=== PATIENT | male | born 1940 | race Caucasian/White ===

== ENCOUNTER 2018-08-13 05:43 | Emergency (ER) | payer MEDICARE ==
[2018-08-13 06:24] LABS: #Eosinphils 0.1 thou/uL (0.0-0.7); #Lymphocytes 1.3 thou/uL (1.20-3.40); #Monocytes 0.5 thou/uL (0.11-0.59); #Neutrophils 4.7 thou/uL (1.40-6.50); %Basophils 0.3 % (0.0-1.0); %Eosinophils 1.6 % (0.0-10.0); %Lymphocytes 20.1 % (21.0-51.0); %Monocytes 7.7 % (0.0-10.0); %Neutrophils 70.3 % (42.0-75.0); Hemoglobin 13.7 g/dL (14.0-18.0); Mean Corpuscular HGB CONC 33.2 g/dL (32.0-36.0); Mean Corpuscular Hemoglobin 31.5 pg (27.0-31.0); Mean Corpuscular Volume 94.7 fL (78.0-98.0); Mean Platelet Volume 7.1 fL (7.4-10.4); Platelet Count 213 thou/uL (130-400); RBC Distribution Width 11.3 % (11.5-14.5); Red Blood Cell (RBC) Count 4.34 mill/uL (4.70-6.10); White Blood Cell (WBC) Count 6.7 thou/uL (4.8-10.8)
[2018-08-13 06:52] LABS: Alcohol Less than 10 mg/dL (Less than 10); Salicylate Less than 8.0 mg/dL (15.0-30.0)
[2018-08-13 06:53] LABS: ALT (SGPT) 18 U/L (8-55); AST (SGOT) 20 U/L (5-34); Albumin 4.3 g/dL (3.4-4.8); Alkaline Phosphatase 59 U/L (40-150); Anion Gap 13 mmol/L (10-20); BUN (Urea Nitrogen) 12 mg/dL (8.4-25.7); Bilirubin, Total 0.4 mg/dL (0.2-1.2); Calc. Creatinine Clearance 0 mL/min (70-130); Calcium 9.5 mg/dL (7.8-10.44); Carbon Dioxide 26 mmol/L (23-31); Chloride 100 mmol/L (98-107); Estimated GFR-MDRD Greater than 90; Globulin 2.8 g/dL (2.4-3.5); Glucose 124 mg/dL (83-110); Potassium 4.1 mmol/L (3.5-5.1); Protein, Total 7.1 g/dL (5.8-8.1); Sodium 135 mmol/L (136-145)
--- NOTE | 2018-08-13 07:22 | CT ---
CT HEAD WITHOUT CONTRAST: INDICATIONS: Altered mental status. FINDINGS: No acute intracranial hemorrhage, mass effect, midline shift, or ventriculomegaly. Incidental note o f cavum septum pellucidum. There is scattered paranasal sinus mucosal thickening. Mild white matter hypoattenuation indicates microvascular ischemic disease. There is incidental note of a probable be nign lucency at the left calvarial vertex. IMPRESSION: 1. No acute intracranial hemorrhage or mass effect. 2. Mild chronic microvascular ischemic disease. POS: DREW
[2018-08-13 08:24] LABS: Bilirubin Negative (Negative); Blood, Urine Negative (Negative); Glucose, Urine (Dipstick) Negative (Negative); Leukocyte Negative (Negative); Nitrite Negative (Negative); Protein, Urine (Dipstick) Negative (Neg-Trace); Urobilinogen 0.2 mg/dL (0.2-1.0)
[2018-08-13 08:25] LABS: Amphetamine Not Detected (NotDetected); Barbiturates Screen Not Detected (NotDetected); Benzodiazepine Screen Not Detected (NotDetected); Cocaine Metabolite Screen Not Detected (NotDetected); Medtox Control Line Valid? VALID (VALID); Medtox Reader # READER 1; Methadone Not Detected (NotDetected); Methamphetamine Not Detected (NotDetected); Opiate Screen Not Detected (NotDetected); Oxycodone Screen Not Detected (NotDetected); Phencyclidine (PCP) Not Detected (NotDetected); THC/Cannabinoid Screen Not Detected (NotDetected); Tricyclic Screen Not Detected (NotDetected)
[2018-08-13 08:26] LABS: Clarity Clear (Clear)
== END 2018-08-13 19:33 ==
LOC: ERS 05:43
DX: I10 Essential (primary) hypertension (principal)
CPT/HCPCS: 36415; 70450; 80053; 80306; 80307; 81003; 84484; 85025; 93005

== ENCOUNTER 2018-11-05 06:54 | Emergency (ER) | payer MEDICARE ==
[2018-11-05] MEDS ORDERED: Proparacaine 0.5% Opth 15 ML BOT ONE (07:00)
[2018-11-05 07:20] LABS: #Eosinphils 0.3 thou/uL (0.0-0.7); #Lymphocytes 1.9 thou/uL (1.20-3.40); #Monocytes 0.6 thou/uL (0.11-0.59); %Basophils 0.1 % (0.0-1.0); %Eosinophils 4.5 % (0.0-10.0); %Lymphocytes 27.9 % (21.0-51.0); %Monocytes 8.6 % (0.0-10.0); %Neutrophils 58.8 % (42.0-75.0); Hemoglobin 14.4 g/dL (14.0-18.0); Mean Corpuscular HGB CONC 33.7 g/dL (32.0-36.0); Mean Corpuscular Hemoglobin 31.8 pg (27.0-31.0); Mean Corpuscular Volume 94.6 fL (78.0-98.0); Mean Platelet Volume 7.7 fL (7.4-10.4); Platelet Count 178 thou/uL (130-400); RBC Distribution Width 11.5 % (11.5-14.5); Red Blood Cell (RBC) Count 4.53 mill/uL (4.70-6.10); White Blood Cell (WBC) Count 6.7 thou/uL (4.8-10.8)
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
[2018-11-05 07:40] LABS: ALT (SGPT) 16 U/L (8-55); AST (SGOT) 20 U/L (5-34); Albumin 4.2 g/dL (3.4-4.8); Alkaline Phosphatase 49 U/L (40-150); Anion Gap 13 mmol/L (10-20); BUN (Urea Nitrogen) 11 mg/dL (8.4-25.7); Bilirubin, Total 0.6 mg/dL (0.2-1.2); Calc. Creatinine Clearance 0 mL/min (70-130); Calcium 9.2 mg/dL (7.8-10.44); Carbon Dioxide 24 mmol/L (23-31); Chloride 101 mmol/L (98-107); Estimated GFR-MDRD Greater than 90; Globulin 2.7 g/dL (2.4-3.5); Glucose 111 mg/dL (83-110); Protein, Total 6.9 g/dL (5.8-8.1); Sodium 134 mmol/L (136-145)
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
[2018-11-05] MEDS ORDERED: Morphine 4 MG/ML VIAL ONE (07:45)
[2018-11-05] MEDS ORDERED: Ondansetron PF 4 MG/2 ML Vial ONE (07:45)
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
[2018-11-05 08:23] LABS: Bilirubin Negative (Negative); Blood, Urine Negative (Negative); Clarity Clear (Clear); Glucose, Urine (Dipstick) Negative (Negative); Leukocyte Negative (Negative); Nitrite Negative (Negative); Protein, Urine (Dipstick) Negative (Neg-Trace); Urobilinogen 0.2 mg/dL (Less than 2)
[2018-11-05] MEDS ORDERED: Lidocaine 1% w/Epinephrine 1:100K 20 ML VIAL ONE (08:26)
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
[2018-11-05] MEDS ORDERED: Adacel (T-DAP) 0.5 ML SYRINGE ONE (09:33)
[2018-11-05] MEDS ORDERED: Acetaminophen 500 MG TAB ONE (10:05)
== END 2018-11-05 12:32 | disposition home or self-care (01) ==
LOC: ERS 06:54
DX: S43.402A Unspecified sprain of left shoulder joint, initial encounter (principal); S20.219A Contusion of unspecified front wall of thorax, initial encounter; S05.02XA Injury of conjunctiva and corneal abrasion without foreign body, left eye, initial encounter; S05.01XA Injury of conjunctiva and corneal abrasion without foreign body, right eye, initial encounter; I10 Essential (primary) hypertension; Z79.899 Other long term (current) drug therapy; V89.2XXA Person injured in unspecified motor-vehicle accident, traffic, initial encounter
CPT/HCPCS: 70450; 71045; 71260; 72125; 74177; 80053; 81003; 85025; 90471; 90715; 93005; 96361; 96374; 96375; G0390; J2001; J2270; J2405

== ENCOUNTER 2019-07-12 19:50 | Observation (INO) | payer MEDICARE ==
[2019-07-12 21:03] LABS: #Eosinphils 0.2 thou/uL (0.0-0.7); #Lymphocytes 1.9 thou/uL (1.20-3.40); #Monocytes 0.6 thou/uL (0.11-0.59); #Neutrophils 4.4 thou/uL (1.40-6.50); %Basophils 0.3 % (0.0-1.0); %Eosinophils 2.9 % (0.0-10.0); %Lymphocytes 26.7 % (21.0-51.0); %Monocytes 8.2 % (0.0-10.0); %Neutrophils 61.9 % (42.0-75.0); Hemoglobin 13.5 g/dL (14.0-18.0); Mean Corpuscular HGB CONC 34.8 g/dL (32.0-36.0); Mean Corpuscular Hemoglobin 32.4 pg (27.0-31.0); Mean Corpuscular Volume 93.4 fL (78.0-98.0); Mean Platelet Volume 7.5 fL (7.4-10.4); Platelet Count 194 thou/uL (130-400); Red Blood Cell (RBC) Count 4.16 mill/uL (4.70-6.10)
[2019-07-12 21:27] LABS: ALT (SGPT) 20 U/L (8-55); AST (SGOT) 26 U/L (5-34); Albumin 4.2 g/dL (3.4-4.8); Alkaline Phosphatase 51 U/L (40-110); Anion Gap 12 mmol/L (10-20); BUN (Urea Nitrogen) 12 mg/dL (8.4-25.7); Bilirubin, Total 0.3 mg/dL (0.2-1.2); Calc. Creatinine Clearance 0 mL/min (70-130); Carbon Dioxide 25 mmol/L (23-31); Chloride 99 mmol/L (98-107); Estimated GFR-MDRD Greater than 90; Globulin 2.7 g/dL (2.4-3.5); Glucose 168 mg/dL (83-110); Potassium 3.4 mmol/L (3.5-5.1); Protein, Total 6.9 g/dL (5.8-8.1); Sodium 133 mmol/L (136-145)
[2019-07-12 21:28] LABS: Acetaminophen Less than 6.0 mcg/mL (10.0-30.0); Alcohol Less than 10 mg/dL (Less than 10); CK (CPK) 359 U/L (30-200); Lipase 54 U/L (8-78); Salicylate Less than 8.0 mg/dL (15.0-30.0)
[2019-07-12 21:29] LABS: Bilirubin Negative (Negative); Blood, Urine Negative (Negative); Glucose, Urine (Dipstick) Negative (Negative); Leukocyte Negative (Negative); Nitrite Negative (Negative); Protein, Urine (Dipstick) Negative (Neg-Trace); Urobilinogen 0.2 mg/dL (Less than 2)
[2019-07-12 21:30] LABS: Clarity Clear (Clear)
[2019-07-12 21:40] LABS: Amphetamine Not Detected (NotDetected); Barbiturates Screen Not Detected (NotDetected); Benzodiazepine Screen Not Detected (NotDetected); Cocaine Metabolite Screen Not Detected (NotDetected); Medtox Control Line Valid? VALID (VALID); Medtox Reader # READER 4; Methadone Not Detected (NotDetected); Methamphetamine Not Detected (NotDetected); Opiate Screen Not Detected (NotDetected); Oxycodone Screen Not Detected (NotDetected); Phencyclidine (PCP) Not Detected (NotDetected); THC/Cannabinoid Screen Not Detected (NotDetected); Tricyclic Screen Not Detected (NotDetected)
[2019-07-12 21:47] LABS: CKMB 5.7 ng/mL (0-6.6)
--- NOTE | 2019-07-12 22:39 | CT ---
Head CT without contrast 07/12/2019: COMPARISON: 11/05/2018 HISTORY: Weakness TECHNIQUE: Axial CT imaging at 5 mm intervals from vertex through skull base without contrast FINDINGS: There is atherosclerotic calcification of the cavernous carotid arteries and distal vertebr al arteries. No displaced calvarial fracture. There is periventricular hypodensity suggesting small vessel disease. No intracranial hemorrhage, mid line shift, mass effect, or ventricular enlargement. IMPRESSION: Stable head CT. No intracranial hemorrhage.
[2019-07-12] MEDS ORDERED: Aspirin Chewable 81 MG TAB ONE ×2 (23:53→23:55)
[2019-07-13] MEDS ORDERED: Senokot S 8.6-50 MG TAB PO PRN (00:55)
[2019-07-13] MEDS ORDERED: Bisacodyl 10 MG SUPP PR PRN (00:55)
[2019-07-13] MEDS ORDERED: Bisacodyl 5 MG TAB PO PRN (00:55)
[2019-07-13] MEDS ORDERED: Acetaminophen 650 MG Suppository PR PRN (00:55)
[2019-07-13 02:05] LABS: #Basophils 0.1 thou/uL (0.0-0.2); #Eosinphils 0.3 thou/uL (0.0-0.7); #Lymphocytes 2.7 thou/uL (1.20-3.40); #Monocytes 0.7 thou/uL (0.11-0.59); #Neutrophils 3.9 thou/uL (1.40-6.50); %Basophils 0.9 % (0.0-1.0); %Eosinophils 3.5 % (0.0-10.0); %Lymphocytes 35.6 % (21.0-51.0); %Monocytes 9.2 % (0.0-10.0); %Neutrophils 50.8 % (42.0-75.0); Hemoglobin 13.7 g/dL (14.0-18.0); Mean Corpuscular HGB CONC 34.7 g/dL (32.0-36.0); Mean Corpuscular Hemoglobin 32.7 pg (27.0-31.0); Mean Platelet Volume 7.5 fL (7.4-10.4); Platelet Count 184 thou/uL (130-400); RBC Distribution Width 11.2 % (11.5-14.5); Red Blood Cell (RBC) Count 4.19 mill/uL (4.70-6.10); White Blood Cell (WBC) Count 7.7 thou/uL (4.8-10.8)
[2019-07-13 02:31] LABS: Anion Gap 13 mmol/L (10-20); BUN (Urea Nitrogen) 11 mg/dL (8.4-25.7); Calc. Creatinine Clearance 0 mL/min (70-130); Calcium 8.9 mg/dL (7.8-10.44); Carbon Dioxide 27 mmol/L (23-31); Cardiac Risk 3.6 (Less than 4.5); Chloride 99 mmol/L (98-107); Cholesterol 158 mg/dl (< 200 Desired); Estimated GFR-MDRD Greater than 90; Glucose 128 mg/dL (83-110); HDL Cholesterol 44 mg/dL (>60 Neg Risk); LDL Cholesterol, Calculated 100 mg/dL; Potassium 3.5 mmol/L (3.5-5.1); Sodium 135 mmol/L (136-145); Triglycerides 70 mg/dL (Less than 150)
[2019-07-13 02:38] VITALS: BMI 27.8
[2019-07-13] MEDS ORDERED: Sodium Chloride 0.45% 1,000 ML IV SCH (03:00)
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
[2019-07-13] MEDS: Acetaminophen 325 MG TAB PO PRN ×2 (08:03→12:41)
[2019-07-13] MEDS: Aspirin 81 mg Enteric Coated Tablet PO SCH (08:03)
[2019-07-13] MEDS ORDERED: FLU VACC TS2019-20(65YR UP)/PF 180 MCG/0.5 ML SYRINGE IM ONE (09:00)
[2019-07-13] MEDS ORDERED: Prevnar 13-Val Conj/PF 0.5 ML SYRINGE IM ONE (09:00)
--- NOTE | 2019-07-13 11:57 | RAD ---
Abdomen one view HISTORY: Abdomen pain. FINDINGS: Large amount of stool is apparent within the colon and rectum. Small bowel gas pattern is nonspecific. There is calcification over the arterial structures. Phleboli ths over the pelvis. Degenerative changes of the lumbar spine and hips. IMPRESSION: Constipation. Atherosclerosis.
[2019-07-13] MEDS ORDERED: Amlodipine 10 MG TAB PO SCH (12:00)
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
--- NOTE | 2019-07-13 15:04 | MRI ---
MRI brain noncontrast HISTORY: TIA. FINDINGS: There is no evidence of acute intracranial hemorrhage or infarct. No mass effect or shift o f midline structures. Mild chronic ischemic small vessel disease within the periventricular white matter of each cerebral hemisphere. Mild diffuse cortical atrophy. Cavum septum pellucidum is noted. Mild mucosal thickening within the ethmoid air cells. IMPRESSION: No acute intracranial abnormalities are demonstrated.
[2019-07-13] MEDS ORDERED: GoLYTELY 4,000 ml Bottle PO SCH (15:45)
[2019-07-13] MEDS ORDERED: Losartan 25 MG TAB PO SCH (16:00)
[2019-07-14 07:50] VITALS: TEMP 97.6
[2019-07-14] MEDS: Aspirin 81 mg Enteric Coated Tablet PO SCH (08:42)
[2019-07-14] MEDS: Acetaminophen 325 MG TAB PO PRN (08:43)
[2019-07-14] MEDS ORDERED: Amlodipine 10 MG TAB PO SCH (09:00)
[2019-07-14] MEDS ORDERED: Losartan 25 MG TAB PO SCH (09:00)
[2019-07-14 12:02] VITALS: BP 143/74
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
--- NOTE | 2019-07-19 10:05 | EKG ---
Test Reason : Blood Pressure : / mmHG Vent. Rate : 090 BPM Atrial Rate : 090 BPM P-R Int : 162 ms QRS Dur : 092 ms QT Int : 364 ms P-R-T Axes : 032 -34 -06 degrees QTc Int : 445 ms Normal sinus rhythm Left axis deviation Incomplete right bundle branch block Possible Inferior infarct , age undetermined Abnormal ECG Confirmed by LEO MYERS ([id number]), photographic editor RAYA GARCIA ([id number]) on 07/19/2019 10:05:28 AM Referred By: Confirmed By:LEO MYERS
== END 2019-07-14 15:32 | disposition home or self-care (01) ==
LOC: ERS 19:50 → 2SE 23:17
PROVIDERS: ADMIT Internal Medicine; ATTEND Internal Medicine
DX: R41.0 Disorientation, unspecified (principal); R47.81 Slurred speech; R53.1 Weakness; K59.00 Constipation, unspecified; N40.0 Benign prostatic hyperplasia without lower urinary tract symptoms; I10 Essential (primary) hypertension; R79.89 Other specified abnormal findings of blood chemistry; I70.90 Unspecified atherosclerosis; Z86.73 Personal history of transient ischemic attack (TIA), and cerebral infarction without residual deficits; Z79.02 Long term (current) use of antithrombotics/antiplatelets; Z79.899 Other long term (current) drug therapy; Z91.048 Other nonmedicinal substance allergy status
CPT/HCPCS: 70450; 70551; 74018; 80048; 80061; 80306; 80307; 81003; 82140; 82550; 82553; 83605; 83690; 84484 ×3; 85025; 90662; 90670; 93005; 97139 ×2; G0008; G0009; 36415; 80053; 84443; 90471; 96360; 96361; G0378

== ENCOUNTER 2020-02-17 09:12 | Emergency (ER) | payer SELFPAY ==
[2020-02-17 10:18] LABS: Bilirubin Negative (Negative); Blood, Urine Negative (Negative); Clarity Clear (Clear); Glucose, Urine (Dipstick) Normal (Negative); Ketone, Urine Negative (Negative); Leukocyte Negative Leu/uL (Negative); Nitrite Negative (Negative); Protein, Urine (Dipstick) 10 mg/dL (Neg-Trace); Specific Gravity, Urine 1.028 (1.002-1.036); Urobilinogen Normal mg/dL (Less than 2)
[2020-02-17 10:22] LABS: #Eosinphils 0.2 thou/uL (0.0-0.7); #Lymphocytes 1.5 thou/uL (1.20-3.40); #Monocytes 0.4 thou/uL (0.11-0.59); #Neutrophils 3.5 thou/uL (1.40-6.50); %Basophils 0.5 % (0.0-1.0); %Eosinophils 2.9 % (0.0-10.0); %Lymphocytes 27.2 % (21.0-51.0); %Monocytes 6.4 % (0.0-10.0); Hemoglobin 13.1 g/dL (14.0-18.0); Mean Corpuscular HGB CONC 32.9 g/dL (32.0-36.0); Mean Corpuscular Hemoglobin 32.4 pg (27.0-31.0); Mean Corpuscular Volume 98.4 fL (78.0-98.0); Mean Platelet Volume 7.7 fL (7.4-10.4); Platelet Count 195 thou/uL (130-400); RBC Distribution Width 11.3 % (11.5-14.5); Red Blood Cell (RBC) Count 4.05 mill/uL (4.70-6.10); White Blood Cell (WBC) Count 5.6 thou/uL (4.8-10.8)
[2020-02-17 10:55] LABS: ALT (SGPT) 28 U/L (8-55); AST (SGOT) 31 U/L (5-34); Albumin 3.8 g/dL (3.4-4.8); Alkaline Phosphatase 37 U/L (40-110); Anion Gap 11 mmol/L (10-20); BUN (Urea Nitrogen) 9 mg/dL (8.4-25.7); Bilirubin, Total 0.5 mg/dL (0.2-1.2); Calc. Creatinine Clearance 0 mL/min (70-130); Calcium 9.1 mg/dL (7.8-10.44); Carbon Dioxide 27 mmol/L (23-31); Chloride 104 mmol/L (98-107); Estimated GFR-MDRD 89; Globulin 2.6 g/dL (2.4-3.5); Glucose 123 mg/dL (83-110); Potassium 4.3 mmol/L (3.5-5.1); Protein, Total 6.4 g/dL (5.8-8.1); Sodium 138 mmol/L (136-145)
== END 2020-02-17 11:45 | disposition home or self-care (01) ==
LOC: ERS 09:12
DX: R30.0 Dysuria (principal); R03.0 Elevated blood-pressure reading, without diagnosis of hypertension; R31.9 Hematuria, unspecified; I10 Essential (primary) hypertension
CPT/HCPCS: 36415; 80053; 81003; 85025; 87086; 99283

== ENCOUNTER 2020-02-18 14:04 | Emergency (ER) | payer SELFPAY ==
[~2020-02-18 14:04] MED LIST: Iopamidol 370 76% 100 ML VIAL ONE
[2020-02-18 14:38] LABS: #Eosinphils 0.1 thou/uL (0.0-0.7); #Lymphocytes 1.8 thou/uL (1.20-3.40); #Monocytes 0.5 thou/uL (0.11-0.59); #Neutrophils 3.6 thou/uL (1.40-6.50); %Basophils 0.3 % (0.0-1.0); %Eosinophils 2.1 % (0.0-10.0); %Lymphocytes 29.6 % (21.0-51.0); %Monocytes 8.2 % (0.0-10.0); %Neutrophils 59.8 % (42.0-75.0); Mean Corpuscular HGB CONC 33.4 g/dL (32.0-36.0); Mean Corpuscular Hemoglobin 32.1 pg (27.0-31.0); Mean Corpuscular Volume 96.1 fL (78.0-98.0); Mean Platelet Volume 7.7 fL (7.4-10.4); Platelet Count 195 thou/uL (130-400); RBC Distribution Width 11.4 % (11.5-14.5); Red Blood Cell (RBC) Count 4.04 mill/uL (4.70-6.10)
[2020-02-18 14:55] LABS: ALT (SGPT) 28 U/L (8-55); AST (SGOT) 35 U/L (5-34); Alcohol Less than 10 mg/dL (Less than 10); Alkaline Phosphatase 40 U/L (40-110); Anion Gap 9 mmol/L (10-20); BUN (Urea Nitrogen) 7 mg/dL (8.4-25.7); Bilirubin, Total 0.4 mg/dL (0.2-1.2); Calc. Creatinine Clearance 0 mL/min (70-130); Calcium 8.5 mg/dL (7.8-10.44); Carbon Dioxide 27 mmol/L (23-31); Chloride 101 mmol/L (98-107); Estimated GFR-MDRD Greater than 90; Globulin 2.6 g/dL (2.4-3.5); Glucose 116 mg/dL (83-110); Potassium 3.9 mmol/L (3.5-5.1); Protein, Total 6.6 g/dL (5.8-8.1); Sodium 133 mmol/L (136-145)
--- NOTE | 2020-02-18 15:03 | RAD ---
EXAM: Single view of the chest HISTORY: Syncope and fall COMPARISON: 11/05/2018, 07/31/2019; CT chest 11/05/2018 FINDINGS: Single view of the chest shows an enlarged but stable cardiomediastinal silhouette. There i s stable fullness along the right superior mediastinum. Atherosclerotic calcifications are seen in the aorta. There is no evidence of consolidation, mass, or pleural effusion. Degenerative changes ar e seen in the spine. IMPRESSION: No evidence of acute cardiopulmonary disease
--- NOTE | 2020-02-18 15:07 | CT ---
EXAM: CT brain without contrast HISTORY: Syncope and fall COMPARISON: 07/12/2019 TECHNIQUE: Multiple contiguous axial images were obtained and a CT of the brain without contrast. FINDINGS: There are scattered hypodensities in the subcortical and periventricular white matter consi stent with small vessel ischemic disease. There is no evidence of hydrocephalus, intracranial hemorrhage, or extra-axial fluid collection. The calvarium and overlying soft tissues are unremarkable. The visualized paranasal sinuses and masto id air cells are well aerated. IMPRESSION: No evidence of acute intracranial abnormality
--- NOTE | 2020-02-18 15:30 | CT ---
CT abdomen and pelvis with IV contrast HISTORY: Abdomen pain. COMPARISON: 11/05/2018. FINDINGS: Hyperinflation and mild emphysematous changes and minimal dependent bibasilar atelectasis a re apparent at the lung bases. There is calcification within the coronary arteries and other arterial structures. The liver, spleen, kidneys, adrenal glands, and pancreas are within normal limits. Scattered divertic oswaldo arise from the colon without adjacent inflammation. No evidence of bowel obstruction. Appendix not inflamed. Urinary bladder is unremarkable. IMPRESSION : No acute abnormalities are demonstrated to explain abdomen pain. Diverticulosis. No evidence of diverticulitis. Atherosclerosis.
== END 2020-02-18 17:22 | disposition left against medical advice (07) ==
LOC: ERS 14:04
DX: R41.82 Altered mental status, unspecified (principal); R10.9 Unspecified abdominal pain; R10.817 Generalized abdominal tenderness; R55 Syncope and collapse; N40.0 Benign prostatic hyperplasia without lower urinary tract symptoms; I10 Essential (primary) hypertension; Z86.73 Personal history of transient ischemic attack (TIA), and cerebral infarction without residual deficits
CPT/HCPCS: 36415; 70450; 71045; 74177; 80053; 80307; 84484; 85025; 93005; Q9967

== ENCOUNTER 2020-02-29 14:08 | Emergency (ER) | payer SELFPAY ==
[2020-02-29 15:56] LABS: Bilirubin Negative (Negative); Blood, Urine Negative (Negative); Clarity Clear (Clear); Glucose, Urine (Dipstick) Normal (Negative); Ketone, Urine Negative (Negative); Leukocyte Negative Leu/uL (Negative); Nitrite Negative (Negative); Protein, Urine (Dipstick) Negative (Neg-Trace); Specific Gravity, Urine 1.014 (1.002-1.036); Urobilinogen Normal mg/dL (Less than 2)
[2020-02-29 16:05] LABS: Amphetamine Not Detected (NotDetected); Barbiturates Screen Not Detected (NotDetected); Benzodiazepine Screen Not Detected (NotDetected); Cocaine Metabolite Screen Not Detected (NotDetected); Medtox Control Line Valid? VALID (VALID); Medtox Reader # READER 1; Methadone Not Detected (NotDetected); Methamphetamine Not Detected (NotDetected); Opiate Screen Not Detected (NotDetected); Oxycodone Screen Not Detected (NotDetected); Phencyclidine (PCP) Not Detected (NotDetected); THC/Cannabinoid Screen Not Detected (NotDetected); Tricyclic Screen Not Detected (NotDetected)
== END 2020-02-29 16:09 | disposition left against medical advice (07) ==
LOC: ERS 14:08
DX: F22 Delusional disorders (principal); R51.9 Headache, unspecified; I10 Essential (primary) hypertension; Z86.73 Personal history of transient ischemic attack (TIA), and cerebral infarction without residual deficits
CPT/HCPCS: 80306; 81003; 99285

== ENCOUNTER 2020-08-30 01:07 | Emergency (ER) | payer MEDICARE ==
[2020-08-30 01:53] LABS: Bilirubin Negative (Negative); Blood, Urine Negative (Negative); Clarity Clear (Clear); Glucose, Urine (Dipstick) Normal (Negative); Ketone, Urine Negative (Negative); Leukocyte Negative Leu/uL (Negative); Nitrite Negative (Negative); Protein, Urine (Dipstick) Negative (Neg-Trace); Specific Gravity, Urine 1.021 (1.002-1.036); Urobilinogen Normal mg/dL (Less than 2); pH, Urine 6.5 (5.0-9.0)
[2020-08-30] MEDS ORDERED: Dexamethasone 10 MG/ML VIAL ONE (02:11)
== END 2020-08-30 03:17 | disposition home or self-care (01) ==
LOC: ERS 01:07
DX: J06.9 Acute upper respiratory infection, unspecified (principal); N40.0 Benign prostatic hyperplasia without lower urinary tract symptoms; I10 Essential (primary) hypertension
CPT/HCPCS: 71045; 81003; 87086; 93005; 94640; 96374; J1100; J7620

== ENCOUNTER 2020-09-17 23:55 | Emergency (ER) | payer MEDICARE | END 2020-09-18 01:13 | disposition left against medical advice (07) | LOC: ERS 23:55 | DX: Z53.21 Procedure and treatment not carried out due to patient leaving prior to being seen by health care provider (principal) ==

== ENCOUNTER 2020-09-18 06:54 | Emergency (ER) | payer MEDICARE ==
[2020-09-18 10:42] LABS: Bilirubin Negative (Negative); Blood, Urine Negative (Negative); Clarity Clear (Clear); Glucose, Urine (Dipstick) Normal (Negative); Ketone, Urine 10 mg/dL (Negative); Leukocyte Negative Leu/uL (Negative); Nitrite Negative (Negative); Protein, Urine (Dipstick) Negative (Neg-Trace); Urobilinogen Normal mg/dL (Less than 2)
== END 2020-09-18 11:15 | disposition home or self-care (01) ==
LOC: ERS 06:54
DX: K59.00 Constipation, unspecified (principal); R35.0 Frequency of micturition
CPT/HCPCS: 81003; 87086; 99283

== ENCOUNTER 2020-09-22 10:37 | Emergency (ER) | payer MEDICARE ==
[2020-09-22 11:22] LABS: Bilirubin Negative (Negative); Blood, Urine Negative (Negative); Glucose, Urine (Dipstick) Normal (Negative); Ketone, Urine Negative (Negative); Leukocyte Negative Leu/uL (Negative); Nitrite Negative (Negative); Protein, Urine (Dipstick) Negative (Neg-Trace); Specific Gravity, Urine 1.012 (1.002-1.036); Urobilinogen Normal mg/dL (Less than 2)
[2020-09-22 11:35] LABS: Clarity Hazy (Clear)
[2020-09-22 11:41] LABS: #Basophils 0.1 thou/uL (0.0-0.2); #Eosinphils 0.1 thou/uL (0.0-0.7); #Lymphocytes 1.3 thou/uL (1.20-3.40); #Monocytes 0.4 thou/uL (0.11-0.59); #Neutrophils 4.2 thou/uL (1.40-6.50); %Basophils 1.1 % (0.0-1.0); %Eosinophils 1.9 % (0.0-10.0); %Lymphocytes 21.6 % (21.0-51.0); %Monocytes 6.4 % (0.0-10.0); %Neutrophils 69.1 % (42.0-75.0); Hemoglobin 13.8 g/dL (14.0-18.0); Mean Corpuscular Volume 97.1 fL (78.0-98.0); Mean Platelet Volume 7.5 fL (7.4-10.4); Platelet Count 190 thou/uL (130-400); RBC Distribution Width 11.7 % (11.5-14.5); Red Blood Cell (RBC) Count 4.06 mill/uL (4.70-6.10)
[2020-09-22 12:16] LABS: ALT (SGPT) 23 U/L (8-55); AST (SGOT) 30 U/L (5-34); Albumin 4.4 g/dL (3.4-4.8); Alkaline Phosphatase 44 U/L (40-110); Anion Gap 14 mmol/L (10-20); BUN (Urea Nitrogen) 7 mg/dL (8.4-25.7); Bilirubin, Total 0.5 mg/dL (0.2-1.2); Calc. Creatinine Clearance 0 mL/min (70-130); Calcium 9.3 mg/dL (7.8-10.44); Carbon Dioxide 24 mmol/L (23-31); Chloride 98 mmol/L (98-107); Globulin 2.5 g/dL (2.4-3.5); Glucose 131 mg/dL (83-110); Potassium 4.1 mmol/L (3.5-5.1); Protein, Total 6.9 g/dL (5.8-8.1); Sodium 132 mmol/L (136-145)
[2020-09-22 12:30] LABS: Acetaminophen Less than 6.0 mcg/mL (10.0-30.0); Alcohol Less than 10 mg/dL (Less than 10); Salicylate Less than 8.0 mg/dL (15.0-30.0)
[2020-09-22 13:18] LABS: Amphetamine Not Detected (NotDetected); Barbiturates Screen Not Detected (NotDetected); Benzodiazepine Screen Not Detected (NotDetected); Cocaine Metabolite Screen Not Detected (NotDetected); Medtox Control Line Valid? VALID (VALID); Medtox Reader # READER 4; Methadone Not Detected (NotDetected); Methamphetamine Not Detected (NotDetected); Opiate Screen Not Detected (NotDetected); Oxycodone Screen Not Detected (NotDetected); Phencyclidine (PCP) Not Detected (NotDetected); THC/Cannabinoid Screen Not Detected (NotDetected); Tricyclic Screen Not Detected (NotDetected)
[2020-09-22] MEDS ORDERED: Ziprasidone 20 MG VIAL ONE (14:35)
[2020-09-22] MEDS ORDERED: Sterile Water 10 ML ONE (14:35)
[2020-09-22] MEDS ORDERED: Acetaminophen 325 MG TAB ONE (20:37)
== END 2020-09-23 02:16 ==
LOC: ERS 10:37
DX: F29 Unspecified psychosis not due to a substance or known physiological condition (principal); Z79.899 Other long term (current) drug therapy
CPT/HCPCS: 71045; 80053; 80306; 80307; 81003; 83880; 84443; 84484; 85025; 93005; 96372; J3486

== ENCOUNTER 2020-10-08 12:20 | Inpatient (IN) | payer MEDICARE ==
[2020-10-08 15:36] LABS: Amphetamine Not Detected (NotDetected); Barbiturates Screen Not Detected (NotDetected); Benzodiazepine Screen Not Detected (NotDetected); Cocaine Metabolite Screen Not Detected (NotDetected); Medtox Control Line Valid? VALID (VALID); Medtox Reader # READER 1; Methadone Not Detected (NotDetected); Methamphetamine Not Detected (NotDetected); Opiate Screen Not Detected (NotDetected); Oxycodone Screen Not Detected (NotDetected); Phencyclidine (PCP) Not Detected (NotDetected); THC/Cannabinoid Screen Not Detected (NotDetected); Tricyclic Screen Not Detected (NotDetected)
[2020-10-08 15:58] LABS: #Basophils 0.1 thou/uL (0.0-0.2); #Eosinphils 0.1 thou/uL (0.0-0.7); #Lymphocytes 1.9 thou/uL (1.20-3.40); #Monocytes 0.7 thou/uL (0.11-0.59); #Neutrophils 5.4 thou/uL (1.40-6.50); %Basophils 0.7 % (0.0-1.0); %Lymphocytes 23.4 % (21.0-51.0); %Monocytes 8.5 % (0.0-10.0); %Neutrophils 66.4 % (42.0-75.0); Hemoglobin 13.1 g/dL (14.0-18.0); Mean Corpuscular HGB CONC 35.7 g/dL (32.0-36.0); Mean Corpuscular Hemoglobin 34.9 pg (27.0-31.0); Mean Corpuscular Volume 97.7 fL (78.0-98.0); Mean Platelet Volume 6.7 fL (7.4-10.4); Platelet Count 203 thou/uL (130-400); RBC Distribution Width 11.2 % (11.5-14.5); Red Blood Cell (RBC) Count 3.76 mill/uL (4.70-6.10); White Blood Cell (WBC) Count 8.1 thou/uL (4.8-10.8)
[2020-10-08 16:19] LABS: ALT (SGPT) 16 U/L (8-55); AST (SGOT) 26 U/L (5-34); Albumin 4.3 g/dL (3.4-4.8); Alkaline Phosphatase 45 U/L (40-110); Anion Gap 13 mmol/L (10-20); BUN (Urea Nitrogen) 5 mg/dL (8.4-25.7); Bilirubin, Total 1.1 mg/dL (0.2-1.2); Calc. Creatinine Clearance 0 mL/min (70-130); Calcium 8.9 mg/dL (7.8-10.44); Carbon Dioxide 24 mmol/L (23-31); Chloride 92 mmol/L (98-107); Globulin 2.9 g/dL (2.4-3.5); Glucose 135 mg/dL (83-110); Potassium 3.7 mmol/L (3.5-5.1); Protein, Total 7.2 g/dL (5.8-8.1); Sodium 125 mmol/L (136-145)
[2020-10-08 16:20] LABS: Acetaminophen Less than 6.0 mcg/mL (10.0-30.0); Alcohol Less than 10 mg/dL (Less than 10); CK (CPK) 322 U/L (30-200); Salicylate Less than 8.0 mg/dL (15.0-30.0)
[2020-10-08] MEDS ORDERED: Ziprasidone 20 MG VIAL ONE (18:12)
[2020-10-08 22:18] VITALS: BMI 23.6
[2020-10-08] MEDS ORDERED: Ondansetron ODT 4 MG TAB PO PRN (22:35)
[2020-10-08] MEDS ORDERED: Ondansetron PF 4 MG/2 ML Vial IVP PRN (22:35)
[2020-10-09] MEDS ORDERED: Sodium Chloride 0.9% 1,000 ML IV SCH (01:00)
[2020-10-09] MEDS: Acetaminophen 325 MG TAB PO PRN ×5 (01:12→22:22)
[2020-10-09 01:27] LABS: Anion Gap 12 mmol/L (10-20); BUN (Urea Nitrogen) 5 mg/dL (8.4-25.7); Calc. Creatinine Clearance 71 mL/min (70-130); Carbon Dioxide 25 mmol/L (23-31); Chloride 99 mmol/L (98-107); Glucose 136 mg/dL (83-110); Potassium 3.5 mmol/L (3.5-5.1); Sodium 132 mmol/L (136-145)
[2020-10-09 06:50] LABS: #Eosinphils 0.2 thou/uL (0.0-0.7); #Lymphocytes 1.4 thou/uL (1.20-3.40); #Monocytes 0.7 thou/uL (0.11-0.59); #Neutrophils 4.5 thou/uL (1.40-6.50); %Basophils 0.7 % (0.0-1.0); %Eosinophils 3.2 % (0.0-10.0); %Lymphocytes 20.9 % (21.0-51.0); %Monocytes 9.7 % (0.0-10.0); %Neutrophils 65.6 % (42.0-75.0); Hemoglobin 11.9 g/dL (14.0-18.0); Mean Corpuscular HGB CONC 34.2 g/dL (32.0-36.0); Mean Corpuscular Hemoglobin 33.5 pg (27.0-31.0); Mean Corpuscular Volume 98.1 fL (78.0-98.0); Mean Platelet Volume 6.9 fL (7.4-10.4); Platelet Count 203 thou/uL (130-400); RBC Distribution Width 11.3 % (11.5-14.5); Red Blood Cell (RBC) Count 3.55 mill/uL (4.70-6.10); White Blood Cell (WBC) Count 6.9 thou/uL (4.8-10.8)
[2020-10-09 07:04] LABS: Anion Gap 12 mmol/L (10-20); BUN (Urea Nitrogen) 7 mg/dL (8.4-25.7); Calc. Creatinine Clearance 79 mL/min (70-130); Calcium 8.7 mg/dL (7.8-10.44); Carbon Dioxide 23 mmol/L (23-31); Chloride 99 mmol/L (98-107); Glucose 106 mg/dL (83-110); Potassium 4.1 mmol/L (3.5-5.1); Sodium 130 mmol/L (136-145)
[2020-10-09 08:49] LABS: SARS-CoV-2 NAA Rapid Test Not Detected (NotDetected)
[2020-10-09] MEDS: Polyethylene Glycol 3350 17 GM Packet PO SCH (20:55)
[2020-10-09] MEDS: traZODone HCl 50 MG TAB PO PRN (20:57)
[2020-10-09] MEDS ORDERED: ALPRAZolam 0.25 MG TAB PO PRN (22:41)
[2020-10-10] MEDS: Acetaminophen 325 MG TAB PO PRN ×3 (08:43→20:05)
[2020-10-10] MEDS ORDERED: Polyethylene Glycol 3350 17 GM Packet PO SCH (09:00)
[2020-10-10 11:24] LABS: Anion Gap 13 mmol/L (10-20); BUN (Urea Nitrogen) 5 mg/dL (8.4-25.7); Calc. Creatinine Clearance 70 mL/min (70-130); Calcium 8.9 mg/dL (7.8-10.44); Carbon Dioxide 27 mmol/L (23-31); Chloride 94 mmol/L (98-107); Glucose 112 mg/dL (83-110); Potassium 4.2 mmol/L (3.5-5.1); Sodium 130 mmol/L (136-145)
[2020-10-10] MEDS: Polyethylene Glycol 3350 17 GM Packet PO SCH (20:03)
[2020-10-10] MEDS: traZODone HCl 50 MG TAB PO PRN (20:04)
[2020-10-11 06:53] LABS: Anion Gap 11 mmol/L (10-20); BUN (Urea Nitrogen) 5 mg/dL (8.4-25.7); Calc. Creatinine Clearance 81 mL/min (70-130); Calcium 9.2 mg/dL (7.8-10.44); Carbon Dioxide 26 mmol/L (23-31); Chloride 96 mmol/L (98-107); Glucose 83 mg/dL (83-110); Potassium 3.9 mmol/L (3.5-5.1); Sodium 129 mmol/L (136-145)
[2020-10-11] MEDS: Acetaminophen 325 MG TAB PO PRN (12:47)
[2020-10-11] MEDS: Sodium Chloride 1 GM TAB PO SCH (14:01)
[2020-10-11] MEDS: traZODone HCl 50 MG TAB PO PRN (21:43)
[2020-10-11] MEDS: ALPRAZolam 0.25 MG TAB PO PRN (21:44)
[2020-10-11] MEDS: Polyethylene Glycol 3350 17 GM Packet PO SCH (21:44)
[2020-10-12] MEDS: Sodium Chloride 1 GM TAB PO SCH (07:58)
[2020-10-12] MEDS: Acetaminophen 325 MG TAB PO PRN (16:40)
[2020-10-12] MEDS: traZODone HCl 50 MG TAB PO PRN (20:37)
[2020-10-12] MEDS: Polyethylene Glycol 3350 17 GM Packet PO SCH (20:37)
[2020-10-12] MEDS: ALPRAZolam 0.25 MG TAB PO PRN (20:37)
[2020-10-13] MEDS: Sodium Chloride 1 GM TAB PO SCH (08:20)
[2020-10-13] MEDS: Acetaminophen 325 MG TAB PO PRN (08:20)
[2020-10-13] MEDS ORDERED: Bisacodyl 5 MG TAB PO SCH (10:45)
[2020-10-13] MEDS: traZODone HCl 50 MG TAB PO PRN (19:53)
[2020-10-13] MEDS: Polyethylene Glycol 3350 17 GM Packet PO SCH (19:53)
[2020-10-13] MEDS: ALPRAZolam 0.25 MG TAB PO PRN (19:53)
[2020-10-14] MEDS: Sodium Chloride 1 GM TAB PO SCH (09:01)
[2020-10-14 11:25] LABS: Anion Gap 11 mmol/L (10-20); BUN (Urea Nitrogen) 6 mg/dL (8.4-25.7); Calc. Creatinine Clearance 72 mL/min (70-130); Calcium 8.9 mg/dL (7.8-10.44); Carbon Dioxide 26 mmol/L (23-31); Chloride 95 mmol/L (98-107); Glucose 116 mg/dL (83-110); Potassium 4.1 mmol/L (3.5-5.1); Sodium 128 mmol/L (136-145)
[2020-10-14] MEDS ORDERED: Sodium Chloride 1 GM TAB PO SCH (14:30)
[2020-10-14] MEDS: traZODone HCl 50 MG TAB PO PRN (20:37)
[2020-10-14] MEDS: ALPRAZolam 0.25 MG TAB PO PRN (20:37)
[2020-10-14] MEDS: Polyethylene Glycol 3350 17 GM Packet PO SCH (20:39)
[2020-10-15] MEDS: Acetaminophen 325 MG TAB PO PRN (05:14)
[2020-10-15 06:34] LABS: Anion Gap 11 mmol/L (10-20); BUN (Urea Nitrogen) 6 mg/dL (8.4-25.7); Calc. Creatinine Clearance 77 mL/min (70-130); Calcium 9.2 mg/dL (7.8-10.44); Carbon Dioxide 23 mmol/L (23-31); Chloride 98 mmol/L (98-107); Glucose 80 mg/dL (83-110); Sodium 128 mmol/L (136-145)
[2020-10-15 07:53] VITALS: BP 144/90; TEMP 97.7
[2020-10-15] MEDS ORDERED: Sodium Chloride 1 GM TAB PO SCH (09:00)
== END 2020-10-15 17:30 | DRG 640 ==
LOC: ERS 12:20 → T4-A 21:02 → OBSVTOIN 10-11 11:51
PROVIDERS: ADMIT Student in an Organized Health Care Education/Training Program; ATTEND Internal Medicine
DX: E87.1 Hypo-osmolality and hyponatremia (principal); G93.41 Metabolic encephalopathy; R45.851 Suicidal ideations; N40.0 Benign prostatic hyperplasia without lower urinary tract symptoms; I10 Essential (primary) hypertension; D64.9 Anemia, unspecified; R63.1 Polydipsia; K59.00 Constipation, unspecified; Z86.73 Personal history of transient ischemic attack (TIA), and cerebral infarction without residual deficits; Z20.822 Contact with and (suspected) exposure to COVID-19; Z91.048 Other nonmedicinal substance allergy status; Z79.02 Long term (current) use of antithrombotics/antiplatelets; Z79.899 Other long term (current) drug therapy
CPT/HCPCS: 36415; 36416; 71045; 74018; 80048; 80053; 80306; 80307; 82550; 83930; 83935; 84300; 84443; 85025; 93005; 96372; G0378; J3486; U0002; U0005